=== PATIENT | female | born 1935 | race Caucasian/White ===

== ENCOUNTER 2024-06-26 11:08 | Emergency (ER) | payer OTHER ==
[~2024-06-26] VITALS: Ht 154.9 cm; Wt 37.6 kg
[2024-06-26 17:21] VITALS: BP 165/78; TEMP 98.1; O2SAT 98
== END 2024-06-26 15:30 ==
LOC: ER 11:13
DX: F41.1 Generalized anxiety disorder (principal); J45.909 Unspecified asthma, uncomplicated; M19.90 Unspecified osteoarthritis, unspecified site